=== PATIENT | male | born 1950 | race Caucasian/White ===

== ENCOUNTER 2019-04-16 11:14 | Emergency (ER) | payer BC ==
[2019-04-16] MEDS ORDERED: ONDANSETRON 4 MG/2 ML VIAL ONE (12:29)
[2019-04-16] MEDS ORDERED: MORPHINE 2 MG/ML SYR ONE (12:29)
[2019-04-16 12:49] LABS: Absolute Lymphocytes (CBC) 1.5 K/uL (0.7-4.9); Basophils % 0.4 % (0-1.3); Hematocrit 43.8 % (39.6-49.0); Lymphocytes % 10.6 % (15.3-44.8); MPV 9.4 fL (7.6-11.3); RBC Red Blood Cell Count 4.51 M/uL (4.33-5.43)
[2019-04-16 13:09] LABS: Albumin 3.9 g/dL (3.4-5.0); Bilirubin Direct 0.3 mg/dL (0-0.2); Potassium 3.6 mmol/L (3.5-5.1); Protein, Total 7.3 g/dL (6.4-8.2)
[2019-04-16] MEDS ORDERED: NA CHLORIDE 0.9% 1,000 ML ONE (13:38)
--- NOTE | 2019-04-16 14:31 | RAD REPORT ---
EXAM DESCRIPTION: CT - Abdomen Pelvis W Contrast - 04/16/2019 2:12 pm CLINICAL HISTORY: right lower abdominal pain, history of hernia repair COMPARISON: CT study December 2017, scrotal ultrasound April 16 TECHNIQUE: Biphasic, helical CT imaging of the abdomen and pelvis was performed following 100 ml non -ionic IV contrast. No oral contrast. All CT scans are performed using dose optimization technique as appropriate and may include automated exposure control or mA/KV adjustment according to patient size. FINDINGS: No suspicious findings in the lung bases. The liver, spleen, and pancreas show no suspicious findings. Gallbladder and biliary tree are also wi thout suspicious finding. Symmetric renal function is seen with no hydronephrosis or suspicious renal mass. No pyelonephritis o r acute parenchymal process. No bladder abnormalities. No adrenal abnormalities. No dilated bowel loops or bowel wall thickening. No free air, free fluid or inflammatory stranding. Bilateral inguinal hernia surgical repair changes are present without evidence for recurrence. Prominent enhancing vessels are seen in the right-side of scrotum. Large epididymal cyst was evident on the ultrasound. Scrotal assessment is limited on CT imaging. No suspicious bony findings. IMPRESSION: Contrast enhanced CT abdomen and pelvis imaging shows no acute abdominal or pelvic proce ss. Bilateral inguinal hernia surgical changes are noted without recurrence of the hernia. Enlarged enhancing vessels in the right side of the scrotum. An epididymal cyst is present. No hernia changes extending into the right scrotum. Epididymitis and/or orchitis would be considerati on.
--- NOTE | 2019-04-16 14:32 | RAD REPORT ---
EXAM DESCRIPTION: US - Scrotum Testicles - 04/16/2019 2:07 pm CLINICAL HISTORY: Scrotal pain on the right, possible recurrent hernia COMPARISON: None. FINDINGS: No bowel extending into the inguinal count now or scrotum identified. No focal lesion of t he right testicle is seen. Doppler evaluation shows blood flow within the testicle. Testicle echogeni city is somewhat heterogeneous. A large 2.2 centimeter right epididymal cyst is present with addition al sub centimeter cysts. No focal lesion of the left testicle. Left testicular tissue is more homogeneous in appearance. Small left epididymal cysts are present. IMPRESSION: Right testicle echogenicity is somewhat heterogeneous but no discrete mass identified. Prominent vessels on the right side of the scrotum. Blood flow to the right testicle is increased rel ative the left. Findings suggest epididymo-orchitis. No sonographic findings for recurrent hernia.
--- NOTE | 2019-04-16 14:43 | EDPHYS ---
Physician Documentation [facility] Name: Derrek Salguero Age: 69 yrs Sex: Male : 1950 Arrival Date: 04/16/2019 Time: 11:16 Bed 23 Private MD: Audie Suarez V ED Physician Paolo Cano HPI: 04/16 11:59 This 69 yrs old Male presents to ER via Ambulatory with complaints of Hernia. jmm 11:59 The patient presents with abdominal pain right lower quadrant. Onset: The jmm symptoms/episode began/occurred gradually, 3 day(s) ago. The symptoms radiate to right testicle. The symptoms are described as achy, sharp. Modifying factors: The symptoms are alleviated by nothing. This is a 69 year old male with a history of htn that presents to the ED with complaints of right lower abdominal pain which radiates into his right testicle. 10 years s/p bilateral inguinal hernia repair. Pain occurred after strenuous activity. . Historical: - Allergies: 11:49 No Known Allergies; aj1 - Home Meds: 11:49 lisinopril 10 mg Oral tab 1 tab once daily [Active]; metoprolol tartrate 25 mg Oral tab aj1 1 tab once daily [Active]; aspirin 81 mg Oral chew 1 tab once daily [Active]; Ventolin Rotahaler/Rotacaps Inhl [Active]; multivitamin oral oral daily [Active]; - PMHx: 11:49 Hypertension; aj1 - Immunization history:: Flu vaccine is not up to date. - Social history:: Smoking status: Patient uses tobacco products, smokes one pack cigarettes per day. - Ebola Screening: : Patient denies travel to an Ebola-affected area in the 21 days before illness onset. ROS: 11:59 Constitutional: Negative for fever, chills, and weight loss, Cardiovascular: Negative jmm for chest pain, palpitations, and edema, Respiratory: Negative for shortness of breath, cough, wheezing, and pleuritic chest pain. 11:59 Abdomen/GI: Positive for abdominal pain. 11:59 : Positive for testicular pain 11:59 All other systems are negative. Exam: 11:59 Constitutional: This is a well developed, well nourished patient who is awake, alert, jmm and in no acute distress. Head/Face: atraumatic. Eyes: EOMI, no conjunctival erythema appreciated ENT: Moist Mucus Membranes Neck: Trachea midline, Supple Chest/axilla: Normal chest wall appearance and motion. Cardiovascular: Regular rate and rhythm. No edema appreciated Respiratory: Normal respirations, no respiratory distress appreciated 11:59 Skin: General appearance color normal MS/ Extremity: Moves all extremities, no obvious deformities appreciated, no edema noted to the lower extremities Neuro: Awake and alert, normal gait Psych: Behavior is normal, Mood is normal, Patient is cooperative and pleasant 11:59 Abdomen/GI: Exam negative for acute changes, Inspection: abdomen appears normal, Bowel sounds: normal, Palpation: soft, mild abdominal tenderness, in the right lower quadrant. 11:59 : Male external genitalia: swelling, is noted in the right inguinal area. Vital Signs: 11:49 BP 127 / 83; Pulse 94; Resp 18; Temp 98.1; Pulse Ox 100% on R/A; Weight 56.7 kg (R); aj1 Height 5 ft. 1 in. (154.94 cm) (R); 13:01 BP 149 / 83; Pulse 69; Resp 18; Pulse Ox 99% on R/A; mg2 13:49 BP 148 / 83; Pulse 60; Resp 18; Pulse Ox 100% on R/A; mg2 14:43 BP 147 / 80; Pulse 67; Resp 18; Pulse Ox 100% on R/A; mg2 11:49 Body Mass Index 23.62 (56.70 kg, 154.94 cm) aj1 MDM: 11:59 Patient medically screened. rolan 14:41 Data reviewed: vital signs, nurses notes. Counseling: I had a detailed discussion with yosef the patient and/or guardian regarding: the historical points, exam findings, and any diagnostic results supporting the discharge/admit diagnosis, lab results, radiology results, the need for outpatient follow up, to return to the emergency department if symptoms worsen or persist or if there are any questions or concerns that arise at home. ED course: Patient is alert and non toxic in appearance. Patient advised to follow up with urology for reevaluation. Patient otherwise given strict return precautions. patient understood and agrees with the plan of care. . 04/16 12:09 Order name: Basic Metabolic Panel; Complete Time: 13:30 yosef 04/16 12:09 Order name: CBC with Diff; Complete Time: 13:30 rolan 04/16 12:09 Order name: Creatinine for Radiology; Complete Time: 13:30 [facility] 04/16 12:09 Order name: Hepatic Function; Complete Time: 13:30 [facility] 04/16 12:09 Order name: Lipase; Complete Time: 13:30 [facility] 04/16 12:09 Order name: Lactate; Complete Time: 13:30 [facility] 04/16 12:09 Order name: IV Saline Lock; Complete Time: 12:30 [facility] 04/16 12:09 Order name: Labs collected and sent; Complete Time: 12:30 [facility] 04/16 12:09 Order name: CT Abd/Pelvis - PO and IV Contrast; Complete Time: 14:38 jm 04/16 12:48 Order name: US Scrotum Testicles; Complete Time: 14:38 jmm Administered Medications: 13:18 Not Given (Patient Refused): morphine 2 mg IVP once; RASS on ADMIN: Combtv4, Very mg2 Agttd3, Agttd2, Rstlss1, AlertClm0, Drwsy-1, Lt Sdtn-2, Mod Sdtn-3, Dp Sdtn-4, UnArsble-5 13:18 Not Given (Patient Refused): Zofran 4 mg IVP once; over 2 minutes mg2 14:00 Drug: NS 0.9% 1000 ml Route: IV; Rate: 1 bolus; Site: right forearm; mg2 14:54 Follow up: Response: No adverse reaction; IV Status: Completed infusion; IV Intake: mg2 1000ml Disposition: 17:29 Co-signature as Attending Physician, Paolo Cano MD. rn Disposition: 04/16/19 14:42 Discharged to Home. Impression: Epididymo-orchitis. - Condition is Stable. - Discharge Instructions: Epididymitis, Orchitis. - Prescriptions for Cipro 500 mg Oral Tablet - take 1 tablet by ORAL route every 12 hours for 10 days; 20 tablet. - Medication Reconciliation Form, Thank You Letter, Antibiotic Education, Prescription Opioid Use form. - Follow up: Gloria Escalante MD; When: 2 - 3 days; Reason: Recheck today's complaints, Continuance of care, Re-evaluation by your physician. Signatures: Dispatcher [employer] Kaycee Rivers RN RN aj1 Praful Estrada PA PA jmm Nieto, Paolo, MD MD rn [place] Genao RN RN mg2 Corrections: (The following items were deleted from the chart) 14:55 14:42 04/16/2019 14:42 Discharged to Home. Impression: Epididymo-orchitis. Condition is mg2 Stable. Forms are Medication Reconciliation Form, Thank You Letter, Antibiotic Education, Prescription Opioid Use. Follow up: Gloria Escalante; When: 2 - 3 days; Reason: Recheck today's complaints, Continuance of care, Re-evaluation by your physician. yosef
--- NOTE | 2019-04-16 14:43 | ER ---
Nurse's Notes [facility] Name: Derrek Salguero Age: 69 yrs Sex: Male : 1950 Arrival Date: 04/16/2019 Time: 11:16 Bed 23 Private MD: Audie Suarez V Diagnosis: Epididymo-orchitis Presentation: 04/16 11:45 Presenting complaint: Patient states: "I've had hernia repair surgery before, it was aj1 probably 10 years ago, but I'm having some very similar symptoms that I had prior to that surgery. It feels like my intestines are trying to fall into the right side of my testicle. My testicle is so tender I can't touch it" Denies N/V/D. Denies fever. Transition of care: patient was not received from another setting of care. Onset of symptoms was April 14, 2019. Risk Assessment: Do you want to hurt yourself or someone else? Patient reports no desire to harm self or others. Initial Sepsis Screen: Does the patient meet any 2 criteria? No. Patient's initial sepsis screen is negative. Does the patient have a suspected source of infection? Yes: Acute abdominal pain. Care prior to arrival: None. 11:45 Method Of Arrival: Ambulatory aj1 11:45 Acuity: CHRISTOPH 3 aj1 Triage Assessment: 11:49 General: Appears in no apparent distress. comfortable, Behavior is calm, cooperative, aj1 appropriate for age. Pain: Complains of pain in pelvis Pain currently is 6 out of 10 on a pain scale. Neuro: Level of Consciousness is awake, alert, obeys commands, Oriented to person, place, time, situation. Cardiovascular: Patient's skin is warm and dry. Respiratory: Airway is patent Respiratory effort is even, unlabored, Respiratory pattern is regular, symmetrical. Historical: - Allergies: 11:49 No Known Allergies; aj1 - Home Meds: 11:49 lisinopril 10 mg Oral tab 1 tab once daily [Active]; metoprolol tartrate 25 mg Oral tab aj1 1 tab once daily [Active]; aspirin 81 mg Oral chew 1 tab once daily [Active]; Ventolin Rotahaler/Rotacaps Inhl [Active]; multivitamin oral oral daily [Active]; - PMHx: 11:49 Hypertension; aj1 - Immunization history:: Flu vaccine is not up to date. - Social history:: Smoking status: Patient uses tobacco products, smokes one pack cigarettes per day. - Ebola Screening: : Patient denies travel to an Ebola-affected area in the 21 days before illness onset. Screenin:31 Abuse screen: Denies threats or abuse. Denies injuries from another. Nutritional mg2 screening: No deficits noted. Tuberculosis screening: No symptoms or risk factors identified. Fall Risk IV access (20 points). Assessment: 12:30 General: Appears in no apparent distress. comfortable, Behavior is calm, cooperative. mg2 Neuro: Level of Consciousness is awake, alert, obeys commands, Oriented to person, place, time, situation. Cardiovascular: Capillary refill < 3 seconds Patient's skin is warm and dry. Respiratory: Airway is patent Respiratory effort is even, unlabored, Respiratory pattern is regular, symmetrical. EENT: No signs and/or symptoms were reported regarding the EENT system. Derm: Skin is intact, is healthy with good turgor, Skin is pink, warm \\T\\ dry. normal. Musculoskeletal: Circulation, motion, and sensation intact. Capillary refill < 3 seconds. 14:54 Reassessment: Patient appears in no apparent distress at this time. Patient is alert, mg2 oriented x 3, equal unlabored respirations, skin warm/dry/pink. Patient states feeling better. Vital Signs: 11:49 BP 127 / 83; Pulse 94; Resp 18; Temp 98.1; Pulse Ox 100% on R/A; Weight 56.7 kg (R); aj1 Height 5 ft. 1 in. (154.94 cm) (R); 13:01 BP 149 / 83; Pulse 69; Resp 18; Pulse Ox 99% on R/A; mg2 13:49 BP 148 / 83; Pulse 60; Resp 18; Pulse Ox 100% on R/A; mg2 14:43 BP 147 / 80; Pulse 67; Resp 18; Pulse Ox 100% on R/A; mg2 11:49 Body Mass Index 23.62 (56.70 kg, 154.94 cm) aj1 ED Course: 11:16 Patient arrived in ED. as 11:16 Audie Suarez MD is Private Physician. as 11:47 Triage completed. aj1 11:49 Arm band placed on Patient placed in an exam room. aj1 11:53 Pra[facility]ada [facility]. jmm 11:53 Paolo Cano MD is Attending Physician. jmm 11:56 [place] Genao, TANJA is Primary Nurse. mg2 12:13 Oral contrast given. mw3 12:30 Oral contrast reported to be complete. mw3 12:31 Patient has correct armband on for positive identification. Door closed. Warm blanket mg2 given. 12:31 No provider procedures requiring assistance completed. Inserted saline lock: 22 gauge mg2 in right forearm, using aseptic technique. Blood collected. by PAVAN Palma. 13:26 Notified Nurse Practitioner and/or Physician Tech Ed Teacher of a critical lab result(s), hb lactate 2.3. 14:02 Ultrasound completed. Patient tolerated well. sg3 14:07 US Scrotum Testicles In Process Unspecified. EDMS 14:12 CT Abd/Pelvis - PO and IV Contrast In Process Unspecified. EDMS 14:12 CT completed. Patient tolerated procedure well. Patient moved back from CT. mw3 14:42 Gloria Escalante MD is Referral Physician. jmm 14:54 IV discontinued, intact, bleeding controlled, No redness/swelling at site. Pressure mg2 dressing applied. Administered Medications: 13:18 Not Given (Patient Refused): morphine 2 mg IVP once; RASS on ADMIN: Combtv4, Very mg2 Agttd3, Agttd2, Rstlss1, AlertClm0, Drwsy-1, Lt Sdtn-2, Mod Sdtn-3, Dp Sdtn-4, UnArsble-5 13:18 Not Given (Patient Refused): Zofran 4 mg IVP once; over 2 minutes mg2 14:00 Drug: NS 0.9% 1000 ml Route: IV; Rate: 1 bolus; Site: right forearm; mg2 14:54 Follow up: Response: No adverse reaction; IV Status: Completed infusion; IV Intake: mg2 1000ml Intake: 14:54 IV: 1000ml; Total: 1000ml. mg2 Outcome: 14:42 Discharge ordered by . jmm 14:55 Discharged to home ambulatory, with family. mg2 14:55 Condition: stable 14:55 Discharge instructions given to patient, family, Instructed on discharge instructions, follow up and referral plans. medication usage, Demonstrated understanding of instructions, follow-up care, medications, Prescriptions given X 1. 14:55 Patient left the ED. mg2 Signatures: Dispatcher [employer] EDKaycee Vickers RN RN aj1 Praful Estrada PA PA jmm Martinez, Amelia as Baxter, Heather, RN RN Adelaida Rivera 3 [place] Genao RN RN mg2 Vannessa Carpenter 3
[2019-04-16 15:19] VITALS: TEMP 98.1
[2019-04-16 15:22] VITALS: O2SAT 100
[2019-04-16 15:23] VITALS: BP 147/80
== END 2019-04-16 14:55 | disposition home or self-care (01) ==
LOC: ER 11:14
DX: N45.3 Epididymo-orchitis (principal); I10 Essential (primary) hypertension; F17.210 Nicotine dependence, cigarettes, uncomplicated; Z79.82 Long term (current) use of aspirin
CPT/HCPCS: 85025; 80048; 36415; 80076; 83605; 83690; 74177; 76870; 96360; 99284; Q9967; J7030; J2270; J2405

== ENCOUNTER 2022-04-03 10:07 | Emergency (ER) | payer OTHER ==
--- OUTSIDE RECORDS SUMMARY | 2022-04-03 10:11 | XMS REPORT | Continuity of Care Document ---
:1950 Author Organization [facility] [place] t Address [address] [place] [address] Care Team Providers Name Role Phone Daniela MCKEON, Audie Bar Primary Care Physician [phone] Claudia Keita Attending Clinician MANINDER FRAUSTO Attending Clinician Unavailable Problems Condition Condition Condition Status Onset Resolution Last Treating Co mments Source Name Details Category Date Date Treatment Clinician Date Abnormal Abnormal Disease [facility] diagnostic diagnostic 00:00: t & Plan: Medical imaging imaging [facility] of this note might be different from the original. The high level imaging with CT and MRI scanning is showing a focus in the right upper dome of the liver that is abnormal. The cause of this abnormali ty is unclear. It will be very important to do a comprehen sive work up for underlyin g liver disease. This will delineate any risk for malignanc ies if underlyin g liver disease is identifie d. We will perform a comprehen sive review of the CT/MRI with out multi-dis ciplinary team of physician s which is done weekly. All tumor markers to include AFP, CEA and CA 19-9 will be done to screen for malignant neoplasm. A dedicated liver biopsy may be needed so informati on is provided in the patient instructi ons. At this time, we will complete the work up and review and see the patient back in 1-2 weeks for full recommend ations. Immunity Immunity Disease Active [facility] 8 [facility] testing testing 00:00: t & [facility] this [facility] might be different from the original. Serologic al tests will be completed to determine the presence of immunity to hepatitis A and B. If the patient does not have adequate immunity, we would recommend administr ation of appropria te vaccinati on as per CDC guideline s by the primary care provider. Essential Essential Disease Active Last [facility] hypertensi hypertensi 8- [facility] on on 00:00: t & Plan[facility] of this note might be different from the original. While the diet will be increasin g in calories, it will be recommend ed that he continue salt restricti on of 2000 mg daily due to is essential hypertens ion. No contraind ications to continuin g his current medical regimen at this time. [facility]if[place] Underweigh Disease Active [facility] due to t due to 03-02 [facility] inadequate inadequate 00:00: Me dical caloric caloric 00 Center intake intake Pulmonary Pulmonary Problem Resolve 2021-05-22 [facility] emphysema emphysema d 01:52:07 l (disorder) (disorder) He rmann Resolved Problem 05/22/2021 Medical Group Allergies, Adverse Reactions, Alerts This patient has no known allergies or adverse reactions. Family History Family Member Diagnosis Comments Start Date Stop Date Source Natural father Heart disease [facility] Natural mother Heart disease [facility] Social History Social Habit Start Date Stop Date Quantity Comments Source History of tobacco Cigarette Smoker [facility] use [facility] History SDOH [facility] Alcohol Frequency Medical Center History SDGA [facility] Alcohol Std Drinks Medica l Center History SDGA [facility] Alcohol Binge Medical Cal ter Alcohol intake 2018-04-19 2018-04-19 [facility]00 [facility] alcohol Medical Center (finding) History SDOH 2018-03-02 2018-03-02 >5 times/week [facility] Alcohol Comment 00:00:00 00:00:00 Medical C enter Cigarettes smoked 2018-03-02 2018-03-[address] [facility] current (pack per 00:00:00 00:00:00 Medical Center day) - Reported Tobacco use and 2018-03-02 2018-03-[address] [facility] exposure 00:00:00 00:00:00 [facility] Sex Assigned At [address] [facility] 00:00:00 00:00:00 Medical Center Smoking Status Start Date Stop Date Source Social History 2021-05-19 16:31:45 [facility] Medications Ordered Filled Start Stop Current Ordering Indication Dosage Frequency Signature Comments Components Source Medication Medication Date Date Medication? Clinician (SIG) Name Name monroe Yes See Memori a n 250 mg 5-24 Instructio l oral tablet 20:44: ns, Take 2 [place] 00 tablets by mouth the first day then 1 tablet by mouth daily on days 2-5., # 6 tab, 0 Refill(s) Ventolin Yes INHALATION Mem oria HFA 5-24 , Q6H, 0 l 20:43: Refill(s) Suraj 00 Vitamin D3 Yes 0 Memoria 5-24 Refill(s) l 20:43: [place] 00 Aspirin 81 Yes 81 mg = 1 Me moria MG Enteric 5-24 tab, PO, l Coated 20:43: Daily, # [place] Tablet 00 90 tab, 3 Refill(s) lisinopril Yes 10 mg = 1 Me moria 10 mg oral 5-24 tab, PO, l tablet 20:42: Daily, 0 Suraj 00 Refill(s) metoprolol Yes 25 mg = 1 Me moria tartrate 25 5-24 tab, PO, l mg oral 20:42: BID, 0 [place] tablet 00 Refill(s) aspirin 81 2017-07 Yes 81mg QD Take [address] [facility] EC 0-09 by mouth [facility] tablet 13:31: daily. [address] multivit-mi 2017-07 Yes QD Take by [facility] nerals/ferr 0-09 mouth [facility] ous fum 13:31: daily. Medical ([address] VITAMIN ORAL) lisinopril Yes 10mg QD Take [address] (PRINIVIL,Z 6-21 by mouth Luke s ESTRIL) 10 00:00: daily. Medic al MG tablet [address] [place] [address] metoprolol Yes 25mg Q.5D Take [address] (LOPRESSOR) 6-05 by mouth 2 [facility] 25 MG 00:00: (two) Medical tablet 00 times Center daily. VENTOLIN 2018-0 Yes INHALE 2 [facility] HFA 90 6-02 PUFFS BY [facility] mcg/actuati 00:00: MOUTH 4 Med ical on inhaler 00 TIMES A Center DAY Procedures Procedure Date / Time Performed Performing Clinician [facility] Hernia repair [facility] Encounters Start End Encounter Admission Attending Care Care Encounter Source Date/Time Date/Time Type Type Clinicians Facility Department ID 2021-05-19 2021-05-20 Outpatient nullFlavo [facility] Multi 55 [id number] Memoria 17:20:00 05:59:59 r Specialty 01 l [facility] kimmie [place] 2021-05-19 2021-05-19 [facility] [id number] 11:20:00 23:59:59 Claudia L 2021-05-19 2021-05-19 Outpatient [facility] IE [id number] Memoria 11:20:00 11:20:00 01 [facility] 2020-12-02 2020-12-03 Outpatient nullFlavo MG Multi 55 [id number] Memoria 13:30:00 04:59:59 r Specialty 00 l [facility] kimmie [place] 2020-12-02 2020-12-02 [facility] [id number] 08:30:00 23:59:59 Claudia L 00 2020-12-02 2020-12-02 Outpatient [facility] IE [id number] Memoria 08:30:00 08:30:00 00 [place] Results Test Description Test Time Test Comments Results Result [facility] Comments MR, ABDOMEN, WITH 2018-05-04 Referring: FINAL REPORT PATIENT 13:39:00 Audie Skinner ID: [id number] MRI follow up TECHNIQUE: MRI of of focal mass the abdomen WITHOUT in the dome. and WITH intravenous contrast. INDICATION: 68-year-old man with liver mass. COMPARISON: Outside abdomen MRI 02/01/2018. FINDINGS: LOWER THORAX: Unremarkable. LIVER: No cirrhosis or hepatic steatosis. Innumerable tiny T2 hyperintense foci throughout both lobes of the liver, not significantly changed since 02/01/2018 despite differences in imaging technique. No enhancing liver lesions.BILIARY: Gallbladder is unremarkable. No biliary ductal dilatation or filling defect.SPLEEN: No splenomegaly.PANCREA S: No focal masses or ductal dilatation. ADRENALS: No adrenal nodules.KIDNEYS/URET ERS: No hydronephrosis or solid mass lesions. PERITONEUM/RETROPERI TONEUM: No free fluid.LYMPH NODES: No lymphadenopathy.VESS ELS: Unremarkable. GI TRACT: No distention or wall thickening. BONES AND SOFT TISSUES: Degenerative changes of the visualized spine. Soft tissues are unremarkable. 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 No enhancing liver lesions. Signed: Christopher Oneil MDReport Verified Date/Time: 05/04/2018 13:39:39 Reading Location: [address] Radiology Reading Room -CREATININE 2018-05-04 10:08:00 Test Item Value Reference Range Interpretation [facility]me [facility] POC-CREATININE (CydanAKER) (test 0.9 mg/dL 0.6-1.3 TESTED AT [facility] 6720 code = 1859) [facility] [address] POC-EGFR (CydanAKER) (test code = 84 mL/min/1.73M2 1860) HEPATITIS B SURFACE [id number] 14:35:00 Test Item Value Reference Range Interpretation Comments HEPATITIS B SURFACE < mIU/mL <8.0 Performe d at [facility] ANTIBODY (BEAKER) (test Diag nostics, 4770 code = 647) [place] [address] ANTI-NUCLEAR ANTIBODY (LESTER)2018-03-03 05:33:00 Test Item Value Reference Range Interpretation Comments ANTI-NUCLEAR ANTIBODY (LESTER) (BEAKER) Negative Negative (test code = 418) Test performed by IFA method.Test performed by IFA method.Test performed by IFA method.HEPATITIS B CORE ANTIBODY, [id number] 20:50:00 Test Item Value Reference Range Interpretation Comments HEPATITIS B CORE TOTAL ANTIBODY Nonreactive Nonreactive (BEAKER) (test code = 497) HEPATITIS A ANTIBODY, [id number] 14:49:00 Test Item Value Reference Range Interpretation Comments HEPATITIS A IGG ANTIBODY (CydanAKER) Nonreactive Nonreactive (test code = 2797) HEPATITIS B SURFACE [id number] 13:19:00 Test Item Value Reference Range Interpretation Comments HEPATITIS B SURFACE ANTIGEN (2) Nonreactive Nonreactive (BEAKER) (test code = 2585) HEPATITIS C [id number] 13:19:00 Test Item Value Reference Range Interpretation Comments HEPATITIS C ANTIBODY (BEAKER) Nonreactive Nonreactive (test code = 367) [id number] 13:15:00 Test Item Value Reference Range Interpretation Comments FERRITIN (BEAKER) (test code = 361) 414 ng/mL 5-275 H ALPHA FETOPROTEIN (AFP), TUMOR [id number] 13:15:00 Test Item Value Reference Range Interpretation Comments ALPHA-FETOPROTEIN (BEAKER) (test 6.1 ng/mL <10.0 code = 1094) CARCINOEMBRYONIC ANTIGEN (CEA)2018-03-02 13:15:00 Test Item Value Reference Range Interpretation Comments CARCINOEMBRYONIC ANTIGEN (BEAKER) 7.5 ng/mL 0.0-5.0 H (test code = 685) IRON, TIBC, % SAT. (WITHOUT FERRITIN)2018-03-02 13:00:00 Test Item Value Reference Range Interpretation Comments IRON (BEAKER) (test code = 547) 89 ug/dL 40-160 TOTAL IRON BINDING CAPACITY 288 ug/dL 250-450 (BEAKER) (test code = 769) IRON % SATURATION (2) (BEAKER) 31 % 20-55 (test code = 2590) [id number] 13:00:00 Test Item Value Reference Range Interpretation Comments ALPHA-1 ANTITRYPSIN (BEAKER) 164.10 mg/dL 90.00-200.00 (test code = 502) COMPREHENSIVE METABOLIC [id number] 12:58:00 Test Item Value Reference Range Interpretation Comments TOTAL PROTEIN 7.3 gm/dL 6.0-8.3 (BEAKER) (test code = 770) ALBUMIN (BEAKER) 4.5 g/dL 3.5-5.0 (test code = 1145) ALKALINE PHOSPHATASE 91 U/L 40-150 (BEAKER) (test code = 346) BILIRUBIN TOTAL 0.8 mg/dL 0.2-1.2 (BEAKER) (test code = 377) SODIUM (BEAKER) (test 141 meq/L 136-145 code = 381) POTASSIUM (BEAKER) 4.0 meq/L 3.5-5.1 (test code = 379) CHLORIDE (BEAKER) 103 meq/L 98-107 (test code = 382) CO2 (BEAKER) (test 27 meq/L 22-29 code = 355) BLOOD UREA NITROGEN 12 mg/dL 7-21 (BEAKER) (test code = 354) CREATININE (BEAKER) 0.85 mg/dL 0.57-1.25 (test code = 358) GLUCOSE RANDOM 80 mg/dL 70-105 (BEAKER) (test code = 652) CALCIUM (BEAKER) 9.8 mg/dL 8.4-10.2 (test code = 697) AST (SGOT) (BEAKER) 30 U/L 5-34 (test code = 353) ALT (SGPT) (BEAKER) 10 U/L 6-55 (test code = 347) EGFR (BEAKER) (test 90 mL/min/1.73 ESTIMA [place] GFR IS code = 1092) sq m NOT ACCURATE CREATININE CLEARANCE IN PREDICTING GLOMERULAR FILTRATION RATE . ESTIMATED GFR I S NOT APPLICABLE FOR DIALYSIS PATIEN TS. BILIRUBIN, [id number] 12:58:00 Test Item Value Reference Range Interpretation Comments BILIRUBIN DIRECT (BEAKER) (test 0.4 mg/dL 0.1-0.5 code = 706) CBC W/PLT COUNT & AUTO [id number] 12:26:00 Test Item Value Reference Range Interpretation Comments WHITE BLOOD CELL COUNT (BEAKER) 7.9 K/ L 3.5-10.5 (test code = 775) RED BLOOD CELL COUNT (BEAKER) 4.60 M/ L 4.63-6.08 L (test code = 761) HEMOGLOBIN (BEAKER) (test code = 15.2 GM/DL 13.7-17.5 410) HEMATOCRIT (BEAKER) (test code = 44.8 % 40.1-51.0 411) MEAN CORPUSCULAR VOLUME (BEAKER) 97.4 fL 79.0-92.2 H (test code = 753) MEAN CORPUSCULAR HEMOGLOBIN 33.0 pg 25.7-32.2 H (BEAKER) (test code = 751) MEAN CORPUSCULAR HEMOGLOBIN CONC 33.9 GM/DL 32.3-36.5 (BEAKER) (test code = 752) RED CELL DISTRIBUTION WIDTH 12.9 % 11.6-14.4 (BEAKER) (test code = 412) PLATELET COUNT (BEAKER) (test 301 K/CU MM 150-450 code = 756) MEAN PLATELET VOLUME (BEAKER) 10.8 fL 9.4-12.4 (test code = 754) NUCLEATED RED BLOOD CELLS 0 /100 WBC 0-0 (BEAKER) (test code = 413) NEUTROPHILS RELATIVE PERCENT 69 % (BEAKER) (test code = 429) LYMPHOCYTES RELATIVE PERCENT 21 % (BEAKER) (test code = 430) MONOCYTES RELATIVE PERCENT 8 % (BEAKER) (test code = 431) EOSINOPHILS RELATIVE PERCENT 1 % (BEAKER) (test code = 432) BASOPHILS RELATIVE PERCENT 1 % (BEAKER) (test code = 437) NEUTROPHILS ABSOLUTE COUNT 5.42 K/ L 1.78-5.38 H (BEAKER) (test code = 670) LYMPHOCYTES ABSOLUTE COUNT 1.66 K/ L 1.32-3.57 (BEAKER) (test code = 414) MONOCYTES ABSOLUTE COUNT (BEAKER) 0.63 K/ L 0.30-0.82 (test code = 415) EOSINOPHILS ABSOLUTE COUNT 0.10 K/ L 0.04-0.54 (BEAKER) (test code = 416) BASOPHILS ABSOLUTE COUNT (BEAKER) 0.06 K/ L 0.01-0.08 (test code = 417) IMMATURE GRANULOCYTES-RELATIVE 0 % 0-1 PERCENT (BEAKER) (test code = 9951)
[2022-04-03] MEDS ORDERED: HYDROCODONE/APAP 5/325 MG TAB ONE (10:39)
--- NOTE | 2022-04-03 11:03 | RAD REPORT ---
EXAM DESCRIPTION: RAD - Ankle Left 3 View - 04/03/2022 10:56 am CLINICAL HISTORY: foot pain COMPARISON: No comparisons FINDINGS: No fracture, dislocation or periosteal reaction. No joint effusion seen. No joint space na rrowing. Minimal degenerative spurring seen along the articular margins of the tibiotalar joint space . Soft tissues are edematous. No air or foreign body seen in the soft tissues. IMPRESSION: Soft tissue edema with no acute bone or joint finding.
--- NOTE | 2022-04-03 11:40 | EDPHYS ---
Physician Documentation [facility] Name: Derrek Salguero Age: 72 yrs Sex: Male : 1950 Arrival Date: 04/03/2022 Time: 10:10 Bed Treatment Private MD: Audie Suarez V ED Physician Paolo Cano HPI: 04/03 10:42 This 72 yrs old Male presents to ER via Ambulatory with complaints of Foot jl9 Pain and redness x1 week. Patient reports dropping a piece of wood on his left foot last week and no c/o redness. . 10:42 The patient presents with pain, swelling. The complaints affect the anterior aspect of jl9 left ankle. Context: The problem was sustained at home, resulted from a direct blow, the patient can fully bear weight, the patient is able to ambulate. Onset: The symptoms/episode began/occurred 1 week(s) ago. Modifying factors: The symptoms are alleviated by the symptoms are aggravated by movement. Associated signs and symptoms: Pertinent positives:. Severity of symptoms: in the emergency department the symptoms. Historical: - Allergies: 10:16 No Known Allergies; bm7 - Home Meds: 10:16 aspirin 81 mg Oral chew 1 tab once daily [Active]; lisinopril 10 mg Oral tab 1 tab once bm7 daily [Active]; metoprolol tartrate 25 mg Oral tab 1 tab once daily [Active]; multivitamin Oral daily [Active]; Ventolin Rotahaler/Rotacaps Inhl [Active]; - PMHx: 10:16 Hypertension; bm7 - PSHx: 10:16 Hernia repair; bm7 - Immunization history:: Adult Immunizations up to date, Last tetanus immunization: unknown. - Social history:: Smoking status: Patient denies any tobacco usage or history of. ROS: 10:44 Constitutional: Negative for fever, chills, and weight loss, Eyes: Negative for injury, jl9 pain, redness, and discharge, ENT: Negative for injury, pain, and discharge, Neck: Negative for injury, pain, and swelling, Cardiovascular: Negative for chest pain, palpitations, and edema, Respiratory: Negative for shortness of breath, cough, wheezing, and pleuritic chest pain, Abdomen/GI: Negative for abdominal pain, nausea, vomiting, diarrhea, and constipation, Back: Negative for injury and pain, : Negative for injury, bleeding, discharge, and swelling. 10:44 Neuro: Negative for headache, weakness, numbness, tingling, and seizure, Psych: Negative for depression, anxiety, suicide ideation, homicidal ideation, and hallucinations, Allergy/Immunology: Negative for hives, rash, and allergies, Endocrine: Negative for neck swelling, polydipsia, polyuria, polyphagia, and marked weight changes, Hematologic/Lymphatic: Negative for swollen nodes, abnormal bleeding, and unusual bruising. 10:44 MS/extremity: Positive for erythema, pain, of the left foot/ ankle area. 10:44 Skin: Positive for erythema. Exam: 10:44 Constitutional: This is a well developed, well nourished patient who is awake, alert, jl9 and in no acute distress. Head/Face: Normocephalic, atraumatic. Eyes: Pupils equal round and reactive to light, extra-ocular motions intact. Lids and lashes normal. Conjunctiva and sclera are non-icteric and not injected. Cornea within normal limits. Periorbital areas with no swelling, redness, or edema. ENT: Mucous membranes moist. Neck: Trachea midline, no thyromegaly or masses palpated, and no cervical lymphadenopathy. Supple, full range of motion without nuchal rigidity, or vertebral point tenderness. No Meningismus. Chest/axilla: Normal chest wall appearance and motion. Nontender with no deformity. No lesions are appreciated. Cardiovascular: Regular rate and rhythm with a normal S1 and S2. No gallops, murmurs, or rubs. Normal PMI, no JVD. No pulse deficits. Respiratory: Lungs have equal breath sounds bilaterally, clear to auscultation and percussion. No rales, rhonchi or wheezes noted. No increased work of breathing, no retractions or nasal flaring. Abdomen/GI: Soft, non-tender, with normal bowel sounds. No distension or tympany. No guarding or rebound. No evidence of tenderness throughout. Back: No spinal tenderness. No costovertebral tenderness. Full range of motion. 10:44 MS/ Extremity: Pulses equal, no cyanosis. Neurovascular intact. Full, normal range of motion. Neuro: Awake and alert, GCS 15, oriented to person, place, time, and situation. Cranial nerves II-XII grossly intact. Motor strength 5/5 in all extremities. Sensory grossly intact. Cerebellar exam normal. Normal gait. Psych: Awake, alert, with orientation to person, place and time. Behavior, mood, and affect are within normal limits. 10:44 Skin: Appearance: abscess, cellulitis, that is mild. Vital Signs: 10:14 BP 121 / 63; Pulse 57; Resp 16; Temp 97.5; Pulse Ox 100% on R/A; Weight 61.23 kg (R); bm7 Height 6 ft. 1 in. (185.42 cm); Pain 8/10; 10:14 Body Mass Index 17.81 (61.23 kg, 185.42 cm) bm7 MDM: 10:21 Patient medically screened. jl9 10:45 Data reviewed: vital signs, nurses notes. jl9 11:38 Counseling: I had a detailed discussion with the patient and/or guardian regarding: the jl9 historical points, exam findings, and any diagnostic results supporting the discharge/admit diagnosis, radiology results, the need for outpatient follow up, to return to the emergency department if symptoms worsen or persist or if there are any questions or concerns that arise at home. 04/03 10:32 Order name: Ankle Left 3 View; Complete Time: 11:38 EDMS Administered Medications: 10:34 Drug: [place] (HYDROcodone-acetaminophen) (7.5 mg-325 mg) 1 tabs Route: PO; bm7 Disposition: 16:32 Co-signature as Attending Physician, Paolo Cano MD. rn Disposition Summary: 04/03/22 11:39 Discharge Ordered Location: Home jl9 Condition: Stable jl9 Diagnosis - Cellulitis of other sites jl9 Followup: jl9 - With: Private Physician - When: 1 - 2 days - Reason: Recheck today's complaints, Continuance of care, Re-evaluation by your physician Discharge Instructions: - Discharge Summary Sheet jl9 - Cellulitis, Adult, [id number] jl9 Forms: - Medication Reconciliation Form jl9 - Thank You Letter jl9 - Antibiotic Education jl9 - Prescription Opioid Use jl9 Prescriptions: - Cephalexin 500 mg Oral Capsule - take 1 capsule by ORAL route every 12 hours for 10 days; 20 capsule; Refills: jl9 0, Product Selection Permitted Signatures: Dispatcher [facility] EDMS Paolo Cano MD MD rn McCarthy, Brittany, RN RN Jonathan Quinteros jl9 Corrections: (The following items were deleted from the chart) 11:52 11:44 Ankle Left 3 View+RAD.RAD.BRZ ordered. EDMS EDMS
--- NOTE | 2022-04-03 11:40 | ER ---
Nurse's Notes [facility] Name: Derrek Salguero Age: 72 yrs Sex: Male : 1950 Arrival Date: 04/03/2022 Time: 10:10 Bed Treatment Private MD: Audie Suarez V Diagnosis: Cellulitis of other sites Presentation: 04/03 10:14 Chief complaint: Patient states: I hurt my foot a week ago on Wednesday while I was bm7 cutting some trees and the branch fell on me. It is now getting red and swollen and really painful. Coronavirus screen: At this time, the client does not indicate any symptoms associated with coronavirus-19. Ebola Screen: No symptoms or risks identified at this time. Initial Sepsis Screen: Does the patient meet any 2 criteria? No. Patient's initial sepsis screen is negative. Does the patient have a suspected source of infection? No. Patient's initial sepsis screen is negative. Risk Assessment: Do you want to hurt yourself or someone else? Patient reports no desire to harm self or others. Note patient states he had an xray last Wednesday that was negative. They gave him naproxen tablets but it hasnt helped. Onset of symptoms was March 27, 2022. 10:14 Method Of Arrival: Ambulatory 7 10:14 Acuity: CHRISTOPH 3 bm7 Triage Assessment: 10:16 General: Appears in no apparent distress. uncomfortable. General: Behavior is calm, bm7 cooperative, appropriate for age. Pain: Complains of pain in left foot. EENT: No deficits noted. No signs and/or symptoms were reported regarding the EENT system. Neuro: No deficits noted. Cardiovascular: No deficits noted. Respiratory: No deficits noted. GI: No deficits noted. No signs and/or symptoms were reported involving the gastrointestinal system. : No deficits noted. No signs and/or symptoms were reported regarding the genitourinary system. Derm: Skin is intact, Skin temperature is warm. Derm: Skin is red, Wound noted left foot. Musculoskeletal: Reports pain in left foot. Historical: - Allergies: 10:16 No Known Allergies; bm7 - Home Meds: 10:16 aspirin 81 mg Oral chew 1 tab once daily [Active]; lisinopril 10 mg Oral tab 1 tab once bm7 daily [Active]; metoprolol tartrate 25 mg Oral tab 1 tab once daily [Active]; multivitamin Oral daily [Active]; Ventolin Rotahaler/Rotacaps Inhl [Active]; - PMHx: 10:16 Hypertension; bm7 - PSHx: 10:16 Hernia repair; bm7 - Immunization history:: Adult Immunizations up to date, Last tetanus immunization: unknown. - Social history:: Smoking status: Patient denies any tobacco usage or history of. Screenin:15 Abuse screen: Denies threats or abuse. Denies injuries from another. Nutritional eh3 screening: No deficits noted. Tuberculosis screening: No symptoms or risk factors identified. Fall Risk None identified. Vital Signs: 10:14 BP 121 / 63; Pulse 57; Resp 16; Temp 97.5; Pulse Ox 100% on R/A; Weight 61.23 kg (R); bm7 Height 6 ft. 1 in. (185.42 cm); Pain 8/10; 10:14 Body Mass Index 17.81 (61.23 kg, 185.42 cm) bm7 ED Course: 10:10 Patient arrived in ED. mr 10:10 Audie Suarez MD is Private Physician. mr 10:16 Triage completed. bm7 10:16 Arm band placed on left wrist. bm7 10:21 Jonathan Trejo is PHCP. jl9 10:21 Paolo Cano MD is Attending Physician. jl9 10:35 Saumya Lwa, TANJA is Primary Nurse. iw 10:58 Ankle Left 3 View In Process Unspecified. EDMS 12:15 Patient has correct armband on for positive identification. Bed in low position. Call eh3 light in reach. Side rails up X2. 12:15 No provider procedures requiring assistance completed. Patient did not have IV access eh3 during this emergency room visit. Administered Medications: 10:34 Drug: [place] (HYDROcodone-acetaminophen) (7.5 mg-325 mg) 1 tabs Route: PO; bm7 Medication: 12:16 VIS not applicable for this client. eh3 Outcome: 11:39 Discharge ordered by . jl9 12:15 Condition: stable eh3 12:15 Discharge instructions given to patient, Instructed on discharge instructions, follow up and referral plans. medication usage, Demonstrated understanding of instructions, follow-up care, medications, wound care, Prescriptions given X 1. 12:16 Discharged to home with crutches, with family. eh3 12:16 Patient left the ED. eh3 Signatures: Dispatcher [employer] Jael Jon Irene RN TANJA iw Elmira Storey RN RN 7 Kimberly Florez RN RN 3 Jonathan Trejo
[2022-04-04 21:25] VITALS: BP 121/63; TEMP 97.5; O2SAT 100
== END 2022-04-03 12:16 | disposition home or self-care (01) ==
LOC: ER 10:07
DX: L03.116 Cellulitis of left lower limb (principal); Z79.82 Long term (current) use of aspirin
CPT/HCPCS: 99283